=== PATIENT | female | born 2000 | race Caucasian/White ===

== ENCOUNTER 2020-02-29 20:53 | Emergency (ER) | payer OTHER ==
[~2020-02-29] VITALS: Ht 165.1 cm; Wt 72.6 kg
[~2020-02-29 20:53] MED LIST: AUGMENTIN 875-1 EACH PO; AUGMENTIN400 MG/53 PO; NOHOMEMEDICATIONS
[2020-02-29] MEDS ORDERED: BIRTH CONTROL (21:07)
[2020-02-29] MEDS ORDERED: VIIBRYD1 EAC1 PO (21:07)
[2020-02-29] MEDS ORDERED: AUGMENTIN 875-1 EACH PO (21:09)
[2020-02-29] MEDS ORDERED: CENTANY30 GM TOP (21:09)
[2020-02-29 21:46] VITALS: BP 184/87
== END 2020-02-29 21:48 | disposition home or self-care (01) ==
LOC: M.ERS 20:53
DX: S01.81XA Laceration without foreign body of other part of head, initial encounter (principal); S51.012A Laceration without foreign body of left elbow, initial encounter; W54.0XXA Bitten by dog, initial encounter; Y93.89 Activity, other specified; Y92.89 Other specified places as the place of occurrence of the external cause; Y99.8 Other external cause status